=== PATIENT | female | born 1970 | race African-American/Black ===

== ENCOUNTER 2024-06-03 13:38 | Emergency (ER) | payer SELFPAY ==
[~2024-06-03] VITALS: Ht 167.6 cm; Wt 69.0 kg
[2024-06-03 13:41] VITALS: TEMP 98.4; O2SAT 95
[2024-06-03 14:16] LABS: EOSINOPHILS % 2.1 % (0.0-5.0); HEMATOCRIT. 40.7 % (36.0-48.0); HEMOGLOBIN. 13.2 g/dL (12.0-16.0); MEAN CORPUSCULAR HEMOGLOBIN 28.5 pg (28.0-32.0); MEAN CORPUSCULAR HGB CONC 32.5 g/dL (31.0-37.0); MEAN CORPUSCULAR VOLUME 87.6 fL (81.0-99.0); MEAN PLATELET VOLUME 8.4 fl (7.4-10.4); MONOCYTES % 7.4 % (2.0-8.0); NEUTROPHILS % 51.5 % (40.0-76.0); PLATELET 269 x1000/uL (130-400); RED BLOOD CELL COUNT 4.64 mill/uL (4.2-5.4); RED CELL DISTRIBUTION WIDTH 13.1 % (11.6-14.6); WHITE BLOOD COUNT 5.6 x1000/uL (4.5-11.0)
[2024-06-03 14:20] LABS: CHLORIDE 104 mEq/L (98-107); POTASSIUM 3.5 mEq/L (3.5-5.1); SODIUM 138 mEq/L (136-145)
[2024-06-03 14:21] LABS: CARBON DIOXIDE 23 mEq/L (21-32)
[2024-06-03 14:22] LABS: CALCIUM 9.4 mg/dL (8.7-10.4)
[2024-06-03 14:26] LABS: CREATININE 1.3 mg/dL (0.6-1.0)
[2024-06-03 14:27] LABS: GLUCOSE 96 mg/dL (70-105); UREA NITROGEN BLOOD 13 mg/dL (9-23)
[2024-06-03 14:28] LABS: TROPONIN I HIGH SENSITIVITY 9 ng/L (3.0-34)
[2024-06-03 15:18] VITALS: BP 97/63; PULSE 75; RESP 16; O2SAT 94
== END 2024-06-03 16:01 | disposition home or self-care (01) ==
LOC: ER 13:44
DX: S09.90XA Unspecified injury of head, initial encounter (principal); F32.A Depression, unspecified; F12.90 Cannabis use, unspecified, uncomplicated; F10.129 Alcohol abuse with intoxication, unspecified; Y90.9 Presence of alcohol in blood, level not specified; W19.XXXA Unspecified fall, initial encounter; Y93.89 Activity, other specified; Y92.89 Other specified places as the place of occurrence of the external cause; Y99.8 Other external cause status
CPT/HCPCS: 36415; 71045; 80048; 83880; 84484; 85025; 93005; 99285